=== PATIENT | male | born 1990 | race Caucasian/White ===

== ENCOUNTER 2024-01-02 11:32 | Emergency (ER) | payer OTHER, SELFPAY ==
[2024-01-02 11:37] VITALS: BP 169/119; PULSE 83; RESP 16; TEMP 36.9; O2SAT 96
[2024-01-02] MEDS: Lidocaine/Epinephri/Tetracaine Topical Gel 3 ML (11:45)
--- NOTE | 2024-01-02 13:13 | W.ED.GENAD ---
Discharge Plan Disposition Patient Disposition: Home Condition: Good Discharge Details Clinical Impression: Laceration of scalp Primary Care Provider: Unknown,Unknown ED Provider: Rohan Martínez Home Meds and New Rx's Prescriptions: No Action No Known Home Meds Discharge Instructions Instructions: Care For Your Stitches (ED) Additional Instructions: Please keep the area clean and dry. Monitor closely for any redness, drainage or discharge. Please return in 7 to 10 days to have the wound reassessed and the sutures removed. If you come back to the emergency department here it will be free of charge for the suture removal. For long-term scar cosmesis, please make sure to avoid any sun to the area for the next year. Apply moisturizer or vitamin E to the area twice daily for the next 12 months for the best chance of wound/scar medication. Please take a daily multivitamin as well as this can help in wound healing. If you notice any worsening of your symptoms, or any new symptoms such as vomiting, diarrhea, fever, chills, shortness of breath, chest pain, numbness, weakness, or fainting , please return immediately to the emergency department for reevaluation. Please follow up with your primary care provider as soon as possible for reassessment and reevaluation. As always, it was a pleasure participating in your medical care today. HPI General Date/Time Provider Initiated Documentation: 01/02/24 11:59. HPI Narrative: Pleasant 33-year-old male whose tetanus is not currently up-to-date presents today for evaluation after a metal door fell on his head. Patient states that the metal object fell on his head a few hours ago, he noticed laceration and came to the ER for further assessment. He denies loss of consciousness. He states that pain is minimal. He denies any vomiting or diarrhea. No other complaints at this time. No other modifying factors. Related Data Home Medications Medication Instructions Recorded Confirmed Unknown [No Known Home Meds] 01/02/24 01/02/24 Allergies Allergy/AdvReac Type Severity Reaction Status Date / Time No Known Allergies Allergy Unverified 01/02/24 11:35 General Stated Complaint: Laceration DAYANARA: 4 Review of Systems All systems reviewed & are unremarkable except as noted in HPI and below Exam Narrative Exam Narrative: 1.Const: Well-nourished, Well-developed, appearing stated age 2.Eyes: PERRL, no conjunctival injection, and symmetrical lids. 3.ENT: Atraumatic external nose and ears. Moist MM. Neck: Symmetric, trachea midline, No thyromegaly. 4.CVS: +S1/S2, No murmurs or gallops. Peripheral pulses 2+ and equal in all extremities. Brisk capillary refill in all extremities. 5.RESP: Unlabored respiratory effort. Clear to auscultation bilaterally. No wheezes rales or rhonchi 6.GI: Soft, Nontender/Nondistended, No hepatosplenomegaly. No guarding or rebound. 7.MSK: Normocephalic/Atraumatic, Extremities w/o deformity or ttp No cyanosis or clubbing, Normal movement of all extremities 8.Skin: Patient has an 8 cm laceration over the scalp. No active bleeding. No bony involvement. No evidence of cranial [place]. 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 Sensation grossly intact, no focal neurologic deficits. 10.Psych: (AAO) x3. Appropriate mood and affect Course Vital Signs Vital signs: Vital Signs Temperature 36.9 C 01/02/24 11:37 Pulse 83 01/02/24 11:37 Respiratory Rate 16 01/02/24 11:37 Blood Pressure 169/119 H 01/02/24 11:37 Pulse Oximetry 96 01/02/24 11:37 Temperature 36.9 C 01/02/24 11:37 Temperature Source Temporal Artery Scan 01/02/24 11:37 Pulse 83 01/02/24 11:37 Respiratory Rate 16 01/02/24 11:37 Respiratory Effort Normal, Non-Labored 01/02/24 11:40 Blood Pressure 169/119 H 01/02/24 11:37 Blood Pressure Position Sitting 01/02/24 11:37 Pulse Oximetry 96 01/02/24 11:37 Oxygen Delivery Method Room Air 01/02/24 11:37 Oxygen Flow Rate 0 01/02/24 11:37 Pain Level 0 01/02/24 11:37 Procedures Laceration Laceration 1: Site: scalp Size (cm): 8 Description: linear Depth: simple, single layer Local Anesthetic: Lidocaine 1% and with Epi Amount of anesthesia used (mL): 5 Pre-repair: wound explored, irrigated extensively and deep structures intact Skin layer closed with: nylon Size (cm): 4-0 Number of sutures: 8 Technique: simple, interrupted Medical Decision Making Pleasant 33-year-old male whose tetanus is not currently up-to-date presents today for evaluation after a metal door fell on his head. Patient states that the metal object fell on his head a few hours ago, he noticed laceration and came to the ER for further assessment. He denies loss of consciousness. He states that pain is minimal. He denies any vomiting or diarrhea. No other complaints at this time. No other modifying factors. Laceration is 8 cm on the scalp, no bony involvement no deep involvement no active bleeding. No other signs of trauma. No loss of consciousness. No indication for emergent imaging currently. The area was cleaned, anesthetized, and 8 simple interrupted sutures were placed with 4-0 nylon. Patient tolerated this well. Discussed red flags which to return. Tetanus was updated. I have extensively reviewed the treatment plan and discharge instructions with the patient and their family. I have addressed all patient concerns at this time. The patient and family was made aware of what symptoms to monitor for that would warrant a return to the emergency department. Discussed the plan with the patient and family, they demonstrate verbal understanding and agreement with our assessment and plan at this time. The documentation in this chart was dictated using [employer] dictation software. Please excuse any dictation errors. Quality:SDOH Health Related Social Needs: No Data to Display PFSH All Active Problems Laceration of scalp (Acute) Social History Smoking/Tobacco Use Status: Never Smoking risk assessment performed?: Yes Alcohol Intake: never Drug use: Never Housing: house Do you feel safe at home: Yes Do you feel safe in your relationship?: Yes
== END 2024-01-02 13:26 | disposition home or self-care (01) ==
PROVIDERS: Emergency Provider Student in an Organized Health Care Education/Training Program
DX: S01.01XA Laceration without foreign body of scalp, initial encounter (principal); W22.8XXA Striking against or struck by other objects, initial encounter
CPT/HCPCS: 12004; 90471; 90715; 99284; 99283

== ENCOUNTER 2025-01-05 11:40 | Emergency (ER) | payer BC, SELFPAY ==
[2025-01-05 11:42] VITALS: BP 158/132; PULSE 79; TEMP 36.5; O2SAT 98
--- NOTE | 2025-01-05 11:45 | RT.EKG_ITS ---
APPROVED REPORT Exam: Resting ECG Reason for Exam: dizzy Patient Location: E HR:82 bpm ECG Measurements Heart Rate 82 AXIS NV 158 P 46 QRSd 87 QRS -4 QT 349 T 19 QTc 407 Conclusion Sinus rhythm 82 normal axis no stemi
--- NOTE | 2025-01-05 11:58 | ED.GENADUL_ITS ---
Discharge Plan Disposition Patient Disposition: Home Condition: Stable Discharge Details Clinical Impression: Dizziness of unknown cause Primary Care Provider: None,None ED Provider: Justina Isabel Home Meds and New Rx's Prescriptions: No Action No Known Home Meds Discharge Instructions Instructions: Dizziness, Adult ED Additional Instructions: At this time CT is within normal limits, labs are also unremarkable. No evidence of heart attack. Your blood pressure was elevated upon initial presentation. Follow up with primary care provider in 3-5 days. Return to ED sooner if any worsening or concerns. Thank you for allowing us to care for you today. You may try meclizine or Dramamine which is [id number] this may make you sleepy. Referrals: Primary Care Provider [Outside] - 5 days HPI General Mode of arrival: ambulatory . Date/Time Provider Initiated Documentation: 01/05/25 11:46 . Limitations to Documentation: no limitations . Information obtained by: patient, RN notes reviewed and old records reviewed . HPI Narrative: 34 year old male with ccc lightheadedness and loss of balance x 2 weeks. S/O states he is now walking into [place]. feels like i'm drunk does endorse occasional alcohol, denies diplopia or blurry vision, no significant recent head injuries. Denies weakness or tingling in extremites. NMo significant PMhx. Related Data Home Medications ?Medication ?Instructions ?Recorded ?Confirmed Unknown [No Known Home Meds] 01/02/24 01/05/25 Allergies Allergy/AdvReac Type Severity Reaction Status Date / Time No Known Allergies Allergy Unverified 01/05/25 11:45 General Stated Complaint: Dizzy/Sync DAYANARA: 3 Review of Systems All systems reviewed & are unremarkable except as noted in HPI and below Constitutional Constitutional: Reports as per HPI ENT Ears, Nose, Mouth, and Throat: Reports dizziness Neurologic Neurologic: Reports dizziness Exam Narrative Exam Narrative: Constitutional: Alert and oriented x3. Appears stated age. Normal body habitus. Head: Normocephalic, no trauma. Eyes: Pupils PERRL, Red reflex noted, EOM's intact. Eyelids symmetrical without lesions, discharge, or swelling. ENT: Bilateral TM's WNL, External ear normal to inspection, no mastoid TTP, swelling, or erythema, Nasal turbinates WNL, no nasal discharge. Normal dentition, Posterior pharynx WNL, no exudate. Chest: RRR, Normal S1, S2, distal pulses intact. Resp: Lungs clear to auscultation bilaterally, no wheezes, rales, or rhonchi. Abdomen: Soft, non-distended, Normoactive bowel sounds all 4 quads. Musculoskeletal: Normal gait, Moves all 4 extremities without difficulty. Skin: No suspicious rashes or lesions. Capillary refill less than 2 sec. Neurologic: Cranial nerves II-XII intact. Alert and oriented x 3. Motor: No deficits noted. Sensory: Intact bilaterally all 4 extremities. Hematologic/Lymphatic: No ecchymosis, no lymphadenopathy. Course Vital Signs Vital signs: Vital Signs Temperature 36.5 C 01/05/25 11:42 Pulse 79 01/05/25 11:42 Blood Pressure 158/132 H 01/05/25 11:42 Pulse Oximetry 98 01/05/25 11:42 Temperature 36.5 C 01/05/25 11:42 Temperature Source Oral 01/05/25 11:42 Pulse 79 01/05/25 11:42 Blood Pressure 158/132 H 01/05/25 11:42 Pulse Oximetry 98 01/05/25 11:42 Medical Decision Making 34 year old male with ccc lightheadedness and loss of balance x 2 weeks. S/O states he is now walking into crowder. feels like i'm drunk does endorse occasional alcohol, denies diplopia or blurry vision, no significant recent head injuries. Denies weakness or tingling in extremites. NMo significant PMhx. Workup ordered including EKG, CBC, CMP, TSH, UA, CT head. \ CT head within normal limits, labs are also largely within normal limits. Discussed lab results and CT results with patient who verbalized understanding. Repeat troponin is 8 which is within normal limits. Patient discharged in hemodynamically stable condition. Blood pressure significantly improved upon discharge at 138/84. Discussed home care, strict return instructions and follow-up care with PCP. Verbalized understanding. This text was generated using echoechoation system, please disregard any oddities of phrase or misspellings. Imaging Data Radiologic Study: Imaging: CT Scan Radiologist's impression: Age: 34 years old Clinical indication: Dizziness TECHNIQUE: Imaging protocol: Computed tomography of the head without contrast. Radiation optimization: All CT scans at this facility use at least one of these dose optimization techniques: automated exposure control; mA and/or kV adjustment per patient size (includes targeted exams where dose is matched to clinical indication); or iterative reconstruction. COMPARISON: No relevant prior studies available. FINDINGS: Brain: Normal. No intraxial or extraaxial hemorrhage. No infarct visible at this time. Unremarkable white matter. No mass effect. No significant involutional change. Cerebral ventricles: Normal. No ventriculomegaly or midline shift. Pituitary gland and sella: Normal. No enlargement. Paranasal sinuses: Visualized sinuses are unremarkable. No fluid levels or mucosal thickening. Mastoid air cells: Visualized mastoid air cells are well aerated. Bones: Unremarkable. No acute fracture. Soft tissues: Unremarkable. Vasculature: No significant atherosclerotic calcification. IMPRESSION: Normal head CT Lab Data Lab results reviewed: Yes I reviewed the patient's lab results. Labs: Laboratory Tests Range/Units 01/05/25 12:09 WBC (4.4-10.8) 10^3/uL 6.95 RBC (4.36-5.78) 10^6/uL 4.92 Hgb (13.5-17.5) g/dL 15.6 Hct (40.0-50.0) % 45.5 MCV (80-95) fL 93 MCH (27.0-33.0) pg 31.7 MCHC (32.0-36.0) % 34.3 RDW (11.8-14.1) % 12.0 Plt Count (130-400) 10^3/uL 286 MPV (8.0-11.0) fL 9.1 Immature Gran % % 0.3 Neutrophils % % 56.9 Lymphocytes % % 28.1 Monocytes % % 9.8 Eosinophils % % 4.2 Basophils % % 0.7 Nucleated RBC % (0.0-0.3) % 0.0 Absolute Neutrophils (1.2-6.7) 10^3/uL 3.96 Absolute Lymphocytes (1.2-3.4) 10^3/uL 1.95 Absolute Monocytes (0.1-0.8) 10^3/uL 0.68 Absolute Eosinophils (0.0-0.7) 10^3/uL 0.29 Absolute Basophils (0.0-0.2) 10^3/uL 0.05 Sodium (136-145) mmol/L 140 Potassium (3.5-5.1) mmol/L 4.2 Chloride (98-107) mmol/L 105 Carbon Dioxide (21.0-32.0) mmol/L 28.8 Anion Gap (3-11) mmol/L 6.2 BUN (7-18) mg/dL 13 Creatinine (0.70-1.30) mg/dL 1.0 Est GFR (CKD-EPI 2020) (mL/min/1.73m2) 101.28 Glucose (74-106) mg/dL 102 Calcium (8.5-10.1) mg/dL 9.0 Magnesium (1.8-2.4) mg/dL 1.8 Total Bilirubin (0.2-1.0) mg/dL 0.4 AST (15-37) U/L 17 ALT (16-63) U/L 57 Alkaline Phosphatase (46-116) U/L 90 Troponin I (<or=76) ng/L 6 Total Protein (6.4-8.2) g/dL 7.2 Albumin (3.4-5.0) g/dL 3.9 TSH (0.36-3.74) uIU/mL 1.02 Quality:SDOH Health Related Social Needs: No Data to Display PFSH All Active Problems (Updated 01/05/25 @ 13:15 by Justina Isabel NP) Dizziness of unknown cause (Acute) Social History Smoking/Tobacco Use Status: Never Smoking risk assessment performed?: Yes Alcohol Intake: never Drug use: Never Housing: house Do you feel safe at home: Yes Do you feel safe in your relationship?: Yes
[2025-01-05 12:00] VITALS: RESP 14
[2025-01-05 12:18] LABS: Abs Immature Grans 0.02 10^3/uL (0.0-0.06); Absolute Basophil Count 0.05 10^3/uL (0.0-0.2); Absolute Eosinophil Count 0.29 10^3/uL (0.0-0.7); Absolute Lymphocyte Count 1.95 10^3/uL (1.2-3.4); Absolute Monocyte Count 0.68 10^3/uL (0.1-0.8); Absolute Neutrophil Count 3.96 10^3/uL (1.2-6.7); Basophils % 0.7 %; Eosinophils % 4.2 %; HCT 45.5 % (40.0-50.0); HGB 15.6 g/dL (13.5-17.5); Immature Grans % 0.3 %; Lymphocytes % 28.1 %; MCH 31.7 pg (27.0-33.0); MCHC 34.3 % (32.0-36.0); MCV 93 fL (80-95); MPV 9.1 fL (8.0-11.0); Monocytes % 9.8 %; Neutrophils % 56.9 %; Platelet Count 286 10^3/uL (130-400); RBC 4.92 10^6/uL (4.36-5.78); RDW-SD 41.1 fL; WBC 6.95 10^3/uL (4.4-10.8)
[2025-01-05 12:41] LABS: ALT 57 U/L (16-63); AST 17 U/L (15-37); Albumin 3.9 g/dL (3.4-5.0); Alkaline Phosphatase 90 U/L (46-116); Anion Gap 6.2 mmol/L (3-11); BUN 13 mg/dL (7-18); Bilirubin, Total 0.4 mg/dL (0.2-1.0); CO2 28.8 mmol/L (21.0-32.0); Chloride 105 mmol/L (98-107); Estimated GFR 101.28 (mL/min/1.73m2); Glucose 102 mg/dL (74-106); Magnesium 1.8 mg/dL (1.8-2.4); Potassium 4.2 mmol/L (3.5-5.1); Sodium 140 mmol/L (136-145); TSH 1.02 uIU/mL (0.36-3.74); Total Protein 7.2 g/dL (6.4-8.2); Troponin I 6 ng/L (<or=76)
--- NOTE | 2025-01-05 12:48 | DI.CT_ITS ---
Exam(s) CT HEAD WO EXAM: CT HEAD WO CLINICAL HISTORY: Dizziness. TECHNIQUE: Imaging Protocol: Axial computed tomography images with coronal and sagittal reformatted images were created and reviewed COMPARISON: No exams were available for comparison FINDINGS: There are no skull fractures. There is no fluid in the visualized paranasal sinuses. There is no evidence of intracranial hemorrhage, mass effect, or shift of midline structures. There are no extra-axial fluid collections. The ventricles are not enlarged or shifted and there is no blo od within the ventricular system nor within the basal cisterns. IMPRESSION: No acute intracranial findings on this noninfused CT scan of the brain. RADIATION DOSE DELIVERED: 837.79mGy.cm Total DLP DATA REPOSITORY: All CT scans at this facility are submitted to the National Radiology Data Registry (NRDR) Dose Index Registry (DIR) with the [employer] (ACR). RADIATION OPTIMIZATION: All CT scans at this facility use at least one of these dose optimization te chniques: automated exposure control; mA and/or kV adjustment per patient size (includes targeted exa ms where dose is matched to clinical indication); or iterative reconstruction.
--- NOTE | 2025-01-05 12:55 | DI.VRAD_ITS ---
PROCEDURE INFORMATION: Exam: CT Head Without Contrast Exam date and time: 01/05/2025 12:29 PM Age: 34 years old Clinical indication: Dizziness TECHNIQUE: Imaging protocol: Computed tomography of the head without contrast. Radiation optimization: All CT scans at this facility use at least one of these dose optimization techniques: automated exposure control; mA and/or kV adjustment per patient size (includes targeted exams where dose is matched to clinical indication); or iterative reconstruction. COMPARISON: No relevant prior studies available. FINDINGS: Brain: Normal. No intraxial or extraaxial hemorrhage. No infarct visible at this time. Unremarkable white matter. No mass effect. No significant involutional change. Cerebral ventricles: Normal. No ventriculomegaly or midline shift. Pituitary gland and sella: Normal. No enlargement. Paranasal sinuses: Visualized sinuses are unremarkable. No fluid levels or mucosal thickening. Mastoid air cells: Visualized mastoid air cells are well aerated. Bones: Unremarkable. No acute fracture. Soft tissues: Unremarkable. Vasculature: No significant atherosclerotic calcification. IMPRESSION: Normal head CT. Dictated and Authenticated by: Trevin Hawk MD. Orderin Maame Horn MD
[2025-01-05 13:07] VITALS: BP 142/91; PULSE 79; PULSE 81; RESP 14; O2SAT 98
[2025-01-05 13:16] VITALS: BP 138/84; PULSE 72; PULSE 78; RESP 18; O2SAT 98
[2025-01-05 13:28] LABS: Troponin I 8 ng/L (<or=76)
== END 2025-01-05 13:28 | disposition home or self-care (01) ==
LOC: ER 13:17
PROVIDERS: Emergency Provider Registered Nurse Emergency
DX: R42 Dizziness and giddiness (principal)
CPT/HCPCS: 36415; 80053; 93005; 99285; 70450; 83735; 84443; 84484; 85025; 93010; 99284